=== PATIENT | male | born 1980 | race Two or more races ===

== ENCOUNTER 2022-12-10 09:42 | Emergency (ER) | payer OTHER ==
[~2022-12-10] VITALS: Ht 165.1 cm; Wt 59.0 kg
[2022-12-10 09:48] VITALS: BP 137/93; TEMP 98.6
[2022-12-10] MEDS ORDERED: KETOROLAC TROMETHAMINE INJ 30 MG/ML VIAL ONE (09:56)
[2022-12-10] MEDS ORDERED: KETOROLAC TROMETHAMINE INJ 60 MG/2 ML VIAL IM ONE (10:00)
[2022-12-10] MEDS ORDERED: NAPR-1164 PO (11:42)
[2022-12-10 11:44] VITALS: O2SAT 100
== END 2022-12-10 11:45 | disposition home or self-care (01) ==
LOC: ER 09:49
DX: S62.334A Displaced fracture of neck of fourth metacarpal bone, right hand, initial encounter for closed fracture (principal); W01.0XXA Fall on same level from slipping, tripping and stumbling without subsequent striking against object, initial encounter; Y93.89 Activity, other specified; Y92.89 Other specified places as the place of occurrence of the external cause; Y99.8 Other external cause status
CPT/HCPCS: 29125; 73110; 73130; 96372; 99284; J1885

== ENCOUNTER 2022-12-13 21:32 | Emergency (ER) | payer OTHER ==
[~2022-12-13] VITALS: Ht 165.1 cm; Wt 59.0 kg
[~2022-12-13 21:32] MED LIST: NAPR-1164 PO
[2022-12-13] MEDS ORDERED: KETOROLAC TROMETHAMINE INJ 30 MG/ML VIAL IM ONE (22:30)
[2022-12-13] MEDS ORDERED: KETOROLAC TROMETHAMINE INJ 30 MG/ML VIAL ONE (22:32)
[2022-12-13] MEDS ORDERED: KETO10TA2 PO (22:42)
[2022-12-13] MEDS ORDERED: SULF1TAB48 PO (22:42)
[2022-12-13] MEDS ORDERED: HYDR-4209 PO (22:42)
[2022-12-13 23:02] VITALS: BP 134/77; TEMP 98.3; O2SAT 98
== END 2022-12-13 23:02 | disposition home or self-care (01) ==
LOC: ER 21:37
DX: S62.91XA Unspecified fracture of right hand, initial encounter for closed fracture (principal); L03.113 Cellulitis of right upper limb; Z79.899 Other long term (current) drug therapy; X58.XXXA Exposure to other specified factors, initial encounter; Y93.89 Activity, other specified; Y92.89 Other specified places as the place of occurrence of the external cause; Y99.8 Other external cause status
CPT/HCPCS: 99283; 96372; J1885

== ENCOUNTER 2023-06-04 01:40 | Emergency (ER) | payer OTHER ==
[~2023-06-04] VITALS: Ht 167.6 cm; Wt 65.8 kg
[~2023-06-04 01:40] MED LIST changes: +HYDR-4209 PO; +KETO10TA2 PO; +SULF1TAB48 PO
[2023-06-04 01:58] VITALS: BP 138/88; TEMP 98.2; O2SAT 99
[2023-06-04] MEDS ORDERED: SULF1TAB48 PO (03:26)
[2023-06-04] MEDS ORDERED: CEPH500T PO (03:26)
[2023-06-04] MEDS: SULFAMETH/TRIMETH 800/160 MG 1 UDTAB TABLET PO ONE (03:33)
[2023-06-04] MEDS: CEPHALEXIN MONOHYDRATE 500 MG CAPSULE PO ONE (03:33)
== END 2023-06-04 03:34 | disposition home or self-care (01) ==
LOC: ER 01:49
DX: J02.9 Acute pharyngitis, unspecified (principal); L08.9 Local infection of the skin and subcutaneous tissue, unspecified
CPT/HCPCS: 86403-TC